=== PATIENT | female | born 2000 | race American Indian/Alaskan Native ===

== ENCOUNTER 2020-07-23 22:04 | Emergency (ER) | payer OTHER ==
[2020-07-24 01:08] LABS: Hemoglobin 13.3 gm/dl (10.1-14.3); Mean Corpuscular HGB Conc 33 % (30-34); Mean Corpuscular Volume 84 fl (79-97); Platelet Count 236 K/mm3 (140-440); Red Cell Distribution Width 14.5 % (13.2-15.2)
[2020-07-24 01:18] LABS: Alanine Aminotransferase 15 units/L (7-56); Albumin 4.2 g/dL (3.9-5); BUN/Creatinine Ratio 12; Blood Urea Nitrogen 12 mg/dL (7-17); Calcium 9.8 mg/dL (8.4-10.2); Hemolysis Index 2
[2020-07-24 01:24] LABS: Bacteria,Urine 4+ /HPF (Negative); Bilirubin,Urine NEG (Negative); Blood,Urine NEG (Negative); Color,Urine Amber (Yellow); Mucus,Urine 3+ /HPF
[2020-07-24 03:21] LABS: Total Cells Counted 100
[2020-07-24 03:22] LABS: Anisocytosis 1+; Platelet Estimate Consistent w Auto
--- NOTE | 2020-07-24 09:15 | Emergency Department Report ---
ED Abdominal Pain HPI - General Chief Complaint: Abdominal Pain Stated Complaint: VOMITING Time Seen by Provider: 07/24/20 09:10 Source: patient Mode of arrival: Ambulatory Limitations: No Limitations - History of Present Illness Initial Comments: This is a 19-year-old female with past medical history of asthma, depression and anxiety. She is no acute distress. She is currently complaining of generalized abdominal pain x2 days, associated with vomiting x3. She reports decreased appetite. She had a bowel movement that was normal for her this morning. She reports urinary frequency, no dysuria. She denies fever nausea, cough, chest pain or shortness of breath. MD Complaint: abdominal pain -: days(s) (2) Location: diffuse Radiation: none Severity: moderate Severity scale (0 -10): 0 - Related Data Previous Rx's Medication Instructions Recorded Last Taken Type Fluconazole (Nf) [Diflucan TAB] 150 mg PO DAILY #2 tablet 06/06/18 Unknown Rx metroNIDAZOLE [Flagyl] 500 mg PO Q12HR #12 tab 06/06/18 Unknown Rx Allergies Allergy/AdvReac Type Severity Reaction Status Date / Time No Known Allergies Allergy Unverified 06/06/18 14:38 ED Review of Systems ROS: Stated complaint: VOMITING Other details as noted in HPI Comment: All other systems reviewed and negative Constitutional: denies: chills, fever, weakness ENT: denies: ear pain, throat pain, dental pain, epistaxis, congestion Respiratory: no symptoms reported Endocrine: no symptoms reported Gastrointestinal: abdominal pain, vomiting Genitourinary: denies: dysuria, hematuria Musculoskeletal: denies: back pain Neurological: denies: headache, weakness, numbness, paresthesias, confusion ED Past Medical Hx - Past Medical History Previous Medical History?: Yes Hx Asthma: Yes - Surgical History Past Surgical History?: No - Social History Smoking Status: Never Smoker Substance Use Type: None - Medications Home Medications: Home Medications Medication Instructions Recorded Confirmed Last Taken Type Fluconazole (Nf) [Diflucan TAB] 150 mg PO DAILY #2 tablet 06/06/18 Unknown Rx metroNIDAZOLE [Flagyl] 500 mg PO Q12HR #12 tab 06/06/18 Unknown Rx ED Physical Exam - General Limitations: No Limitations General appearance: alert, in no apparent distress - Head Head exam: Present: atraumatic - Eye Eye exam: Present: normal appearance. Absent: scleral icterus - ENT ENT exam: Present: mucous membranes moist - Neck Neck exam: Present: normal inspection - Respiratory Respiratory exam: Present: normal lung sounds bilaterally - Cardiovascular Cardiovascular Exam: Present: regular rate, normal heart sounds - GI/Abdominal GI/Abdominal exam: Present: soft, normal bowel sounds. Absent: distended, tenderness, guarding, rebound - Extremities Exam Extremities exam: Present: normal inspection - Back Exam Back exam: Present: normal inspection. Absent: CVA tenderness (R), CVA tenderness (L) - Neurological Exam Neurological exam: Present: alert, oriented X3 - Psychiatric Psychiatric exam: Present: normal affect - Skin Skin exam: Present: warm, dry, intact ED Course Vital Signs 07/24/20 07/24/20 07/24/20 00:07 09:07 09:11 Temperature 97.5 F L 97.6 F 97.6 F Pulse Rate 107 H 80 80 Respiratory 16 16 16 Rate Blood Pressure 113/77 130/87 Blood Pressure 130/87 [Left] O2 Sat by Pulse 100 100 100 Oximetry - Reevaluation(s) Reevaluation #1: 07/24/20 10:42 Patient in no distress she has had no vomiting while in the emergency room on exam her abdomen is soft nontender she has no complaints of pain at this time. All findings discussed with patient she has no her white count is not elevated her urine is clean patient is ready to be discharged home to follow-up with her primary care doctor or return to the emergency room for any worsening symptoms ED Medical Decision Making - Lab Data Result diagrams: 07/24/20 00:42 07/24/20 00:42 - Medical Decision Making 19-year-old patient with generalized abdominal pain and 3 episodes of vomiting at home. She has been in the emergency room for over 16 hours and has not had any vomiting. She is in no distress her abdominal exam was normal. Blood work and urinalysis no acute findings she is not . Most likely of gastroenteritis. Instruct patient to have a bland diet follow-up with her primary care doctor or return for any worsening symptoms - Differential Diagnosis Viral gastroenteritis abdominal pain Critical Care Time: No Critical care attestation.: If time is entered above; I have spent that time in minutes in the direct care of this critically ill patient, excluding procedure time. ED Disposition Clinical Impression: Gastroenteritis Abdominal pain Qualifiers: Abdominal location: generalized Qualified Code(s): R10.84 - Generalized abdominal pain Disposition: DC-01 TO HOME OR SELFCARE Is pt being admited?: No Does the pt Need Aspirin: No Condition: Stable Instructions: Abdominal Pain (ED), Abdominal Pain, Adult, [id number] Additional Instructions: Your blood work and urine with no signs of infection, please follow-up with your primary care doctor or with Dr. Ackerman in 2 to 3 days. Return to the emergency room for any worsening symptoms such as worsening pain inability to eat worsening vomiting increasing diarrhea fever Referrals: PRIMARY CARE, [Primary Care Provider] - 3-5 Days DANIEL ACKERMAN MD [Staff Physician] - 3-5 Days Time of Disposition: 10:34
[2020-07-24 10:44] VITALS: BP 125/85
== END 2020-07-24 10:42 | disposition home or self-care (01) ==
LOC: ED 22:04
DX: K52.89 Other specified noninfective gastroenteritis and colitis (principal)
CPT/HCPCS: 36415; 80053; 81001; 83690; 84703; 85007; 85025